=== PATIENT | male | born 1950 | race Caucasian/White ===

== ENCOUNTER → 2017-05-15 | Outpatient (CLI) | payer BC ==
--- NOTE | 2017-05-15 16:54 | RADIOLOGY REPORT (SQ) ---
EXAM DESCRIPTION: CT CHEST WITH COMPLETED DATE/TIME: 05/15/2017 4:06 pm REASON FOR STUDY: Z12.2 ENCNTR SCREEN FOR MALIGNANT NEOPLASM OF RESPIRATORY ORGANS R05 COUGH Z12.2 ENCNTR SCREEN FOR MALIGNANT NEOPLASM OF RESPIRATORY OR COMPARISON: None. TECHNIQUE: CT scan of the chest performed using helical scanning technique with dynamic intravenous contrast injection. Images reviewed with lung, soft tissue and bone windows. Reconstructed coronal and sagittal MPR images reviewed. All images stored on PACS. All CT scanners at this facility use dose modulation, iterative reconstruction, and/or weight based d osing when appropriate to reduce radiation dose to as low as reasonably achievable (ALARA). [facility]: Dose Right [facility]: CareDose [facility]: Dose Right [facility]: Teradose 4D [facility]: [employer] CONTRAST TYPE AND DOSE: contrast/concentration: Isovue 370.00 mg/ml; Total Contrast Delivered: 80.0 ml; Total Saline Delivered: 55.0 ml RENAL FUNCTION: Creatinine 1 RADIATION DOSE: Up-to-date CT equipment and radiation dose reduction techniques were employed. CTDIv ol: 7.5 mGy. DLP: 313 mGy-cm. . LIMITATIONS: None. FINDINGS: LUNGS AND PLEURA: No opacities, nodules, masses. No pneumothorax. No effusions. HILAR AND MEDIASTINAL STRUCTURES: No identified masses or abnormal nodes. HEART AND VASCULAR STRUCTURES: No aneurysm or dissection. No central pulmonary emboli. No pericardi al effusion. HARDWARE: None in the chest. UPPER ABDOMEN: No significant findings. Limited exam. THYROID AND OTHER SOFT TISSUES: No masses. No adenopathy. BONES: No significant finding. OTHER: No other significant finding. IMPRESSION: NORMAL CT OF THE CHEST WITH IV CONTRAST. TECHNICAL DOCUMENTATION: JOB ID: [id number] Quality ID # [id number]: Final reports with documentation of one or more dose reduction techniques (e.g., Au tomated exposure control, adjustment of the mA and/or kV according to patient size, use of iterative reconstruction technique) 2010 [employer]- All Rights Reserved
== END ==
LOC: RAD 15:04
PROVIDERS: ATTEND Internal Medicine
DX: Z12.2 Encounter for screening for malignant neoplasm of respiratory organs (principal)
CPT/HCPCS: 71260; 82565

== ENCOUNTER 2018-12-19 06:33 | Day surgery (SDC) | payer BC ==
[~2018-12-19 06:33] MED LIST: KETOROLAC TROMETHAMINE 0.45% 4 DROP/0.4 ML DROPERETTE OS PRN; TETRACAINE HCL 0.5% OPH SOLN 4 ML OS PRN
[2018-12-19] MEDS ORDERED: MIDAZOLAM 2 MG/2 ML INJ ONE ×2 (06:48→07:35)
[2018-12-19] MEDS ORDERED: FENTANYL CITRATE INJ/PF 100 MCG/2 ML AMPUL ONE (06:48)
[2018-12-19] MEDS: CYCLOPENTOLATE 0.2%/PHENYLEPHRINE 1% OPH SOLN 2 ML OS PRN ×3 (07:29→07:47)
[2018-12-19] MEDS: TETRACAINE HCL 0.5% OPH SOLN 4 ML OS PRN ×2 (07:29→07:47)
[2018-12-19] MEDS: BESIFLOXACIN HCL 0.6% OPH SUSP 5 ML BOTTLE OS PRN ×4 (07:29→08:12)
[2018-12-19] MEDS: TROPICAMIDE 1% OPH SOLN 3 ML OS PRN ×3 (07:29→07:47)
[2018-12-19] MEDS: TETRACAINE HCL 0.5% OPH SOLN 4 ML ONE ×2 (07:49)
[2018-12-19] MEDS: LIDOCAINE 1%/PHENYLEPHRINE 1.5% 1 ML VIAL ONE ×2 (08:01)
[2018-12-19] MEDS: EPINEPHRINE INJ/PF 1 MG/1 ML AMPULE ONE ×2 (08:01)
[2018-12-19] MEDS: CHONDR SU A NA/HYALUR INTRAOC KIT (SURGICARE) ONE ×2 (08:01)
[2018-12-19] MEDS: DORZOLAMIDE HCL 2%/TIMOLOL MALEAT 0.5% OPH SOLN 10 ML OS PRN ×2 (08:12)
--- NOTE | 2018-12-19 17:15 | [facility] OPERATIVE REPORT E ---
[facility] Operative Report NAME: IVON VILLANUEVA AGE: 68Y DATE OF SURGERY: 12/19/2018 ROOM: PREOPERATIVE DIAGNOSIS: CATARACT, LEFT EYE. POSTOPERATIVE DIAGNOSIS: CATARACT, LEFT EYE. OPERATION: Cataract extraction with insertion of an IOL of the left eye. SURGEON: SANDHYA WILDE M.D. ANESTHESIA: Topical. PROCEDURE: After obtaining appropriate consent, the patient's left eye was prepped and draped in sterile fashion as well as the surgeon in a sterile manner and cataract surgery was started. First a paracentesis blade was used to make a side-port incision. Viscoelastic was used to inflate the anterior chamber. Next a 2.4 mm incision was made with a 2.4 mm blade, clear corneal temporally. A continuous capsulorrhexis was made using a cystotome and Utrata forceps. Following this hydrodissection was carried out to make the lens fully loose and mobile and it was rotated 90 degrees. Following this, a bcsemx-qnl-spunpnv technique was used to phacoemulsify the lens with a CDE of 11.07. The remaining cortex was removed with irrigation/aspiration. Provisc was instilled into the capsular bag to inflate the bag. A SN60WF, 16.0 diopter lens was placed. The remaining viscoelastic material was removed with irrigation/aspiration. Following this, the incision was found to be watertight. Besivance was instilled into the eye and a protective shield was placed over the eye. The patient returned to the postoperative recovery in stable condition. DICTATING PHYSICIAN: SANDHYA WILDE M.D. [id number] PHY#: [id number] ID: [id number] JOB#: [id number] ACCT: [id number] cc:SANDHYA WILDE M.D. >
--- NOTE | 2018-12-19 17:15 | [facility] DISCHARGE SUMMARY E ---
[facility] Discharge Summary NAME: IVON VILLANUEVA AGE: 68Y ADMITTED: 12/19/2018 DISCHARGED: The patient is a 68-year-old male who underwent cataract extraction of the left eye. DIAGNOSIS: Cataract left eye. He underwent surgery because he was having difficulty seeing the lines on the road when driving. He should be on a regular diet. No bending at the waist and no heavy lifting. He should use his Besivance, Ilevro, and Durezol at 3:00 p.m. and 8:00 p.m. and sleep with a rigid shield. I will see him for his 1-day postop tomorrow. DICTATING PHYSICIAN: SANDHYA WILDE M.D. [id number] PHY#: [id number] ID: [id number] JOB#: [id number] ACCT: [id number] cc:SANDHYA WILDE M.D. >
[2018-12-20] MEDS ORDERED: DORZOLAMIDE HCL 2%/TIMOLOL MALEAT 0.5% OPH SOLN 10 ML OS PRN (05:00)
[2018-12-20] MEDS ORDERED: BESIFLOXACIN HCL 0.6% OPH SUSP 5 ML BOTTLE OS PRN (05:00)
[2018-12-20] MEDS ORDERED: CYCLOPENTOLATE 0.2%/PHENYLEPHRINE 1% OPH SOLN 2 ML OS PRN (05:00)
[2018-12-20] MEDS ORDERED: TETRACAINE HCL 0.5% OPH SOLN 0.6 ML DROPERETTE OS PRN (05:00)
[2018-12-20] MEDS ORDERED: KETOROLAC TROMETHAMINE 0.45% 4 DROP/0.4 ML DROPERETTE OS PRN (05:00)
[2018-12-20] MEDS ORDERED: TROPICAMIDE 1% OPH SOLN 3 ML OS PRN (05:00)
== END 2018-12-19 09:05 | disposition home or self-care (01) ==
LOC: SC 06:33
PROVIDERS: ATTEND Internal Medicine
PROC: 08RK3JZ Replacement of Left Lens with Synthetic Substitute, Percutaneous Approach (ICD-10-PCS; principal; 2018-12-19 07:30)
DX: H25.12 Age-related nuclear cataract, left eye (principal); H52.4 Presbyopia; E11.9 Type 2 diabetes mellitus without complications; I10 Essential (primary) hypertension; E78.00 Pure hypercholesterolemia, unspecified; F17.210 Nicotine dependence, cigarettes, uncomplicated; I69.354 Hemiplegia and hemiparesis following cerebral infarction affecting left non-dominant side; Z79.84 Long term (current) use of oral hypoglycemic drugs; Z79.899 Other long term (current) drug therapy
CPT/HCPCS: 82962; 00142; 66984; V2632; J2250; J3490 ×2; J0171; J2370; 142; J3010

== ENCOUNTER 2019-01-16 10:07 | Day surgery (SDC) | payer BC ==
[~2019-01-16 10:07] MED LIST changes: +CHONDR SU A NA/HYALUR INTRAOC KIT (SURGICARE) ONE; +EPINEPHRINE INJ/PF 1 MG/1 ML AMPULE ONE; +KETOROLAC TROMETHAMINE 0.45% 4 DROP/0.4 ML DROPERETTE OD PRN; -KETOROLAC TROMETHAMINE 0.45% 4 DROP/0.4 ML DROPERETTE OS PRN; +LIDOCAINE 1%/PHENYLEPHRINE 1.5% 1 ML VIAL ONE; +MIDAZOLAM 2 MG/2 ML INJ ONE; -TETRACAINE HCL 0.5% OPH SOLN 4 ML OS PRN
[2019-01-16] MEDS: TROPICAMIDE 1% OPH SOLN 3 ML OD PRN ×3 (11:10→11:33)
[2019-01-16] MEDS: CYCLOPENTOLATE 0.2%/PHENYLEPHRINE 1% OPH SOLN 2 ML OD PRN ×3 (11:10→11:33)
[2019-01-16] MEDS: TETRACAINE HCL 0.5% OPH SOLN 4 ML OD PRN ×3 (11:10→11:39)
[2019-01-16] MEDS: BESIFLOXACIN HCL 0.6% OPH SUSP 5 ML BOTTLE OD PRN ×4 (11:10→12:00)
[2019-01-16] MEDS: DORZOLAMIDE HCL 2%/TIMOLOL MALEAT 0.5% OPH SOLN 10 ML OD PRN ×2 (12:00)
--- NOTE | 2019-01-16 19:26 | [facility] OPERATIVE REPORT E ---
[facility] Operative Report NAME: IVON VILLANUEVA AGE: 68Y DATE OF SURGERY: 01/16/2019 ROOM: PREOPERATIVE DIAGNOSIS: CATARACT, RIGHT EYE. POSTOPERATIVE DIAGNOSIS: CATARACT, RIGHT EYE. OPERATION: Cataract extraction with insertion of an IOL of the right eye. SURGEON: SANDHYA WILDE M.D. ANESTHESIA: Topical. PROCEDURE: After obtaining appropriate consent, the patient's right eye was prepped and draped in sterile fashion as well as the surgeon in a sterile manner and cataract surgery was started. First a paracentesis blade was used to make a side-port incision. Viscoelastic was used to inflate the anterior chamber. Next a 2.4 mm incision was made with a 2.4 mm blade, clear corneal temporally. A continuous capsulorrhexis was made using a cystotome and Utrata forceps. Following this hydrodissection was carried out to make the lens fully loose and mobile and it was rotated 90 degrees. Following this, a swuhae-kxi-qocplfj technique was used to phacoemulsify the lens with a CDE of 2.95. The remaining cortex was removed with irrigation/aspiration. Provisc was instilled into the capsular bag to inflate the bag. A SN60WF, 16.5 diopter lens was placed. The remaining viscoelastic material was removed with irrigation/aspiration. Following this, the incision was found to be watertight. Besivance was instilled into the eye and a protective shield was placed over the eye. The patient returned to the postoperative recovery in stable condition. DICTATING PHYSICIAN: SANDHYA WILDE M.D. [id number] PHY#: [id number] ID: [id number] JOB#: [id number] ACCT: [id number] cc:SANDHYA WILDE M.D. >
--- NOTE | 2019-01-16 19:26 | [facility] DISCHARGE SUMMARY E ---
[facility] Discharge Summary NAME: IVON VILLANUEVA AGE: 68Y ADMITTED: 01/16/2019 DISCHARGED: 01/16/2019 HOSPITAL COURSE: This is a 68-year-old patient who underwent cataract extraction of the right eye. DIAGNOSIS: CATARACT, RIGHT EYE. He underwent surgery because he was having an imbalance between both eyes and has trouble going up and down stairs. DISCHARGE INSTRUCTIONS: He should be on a regular diet. No bending at his waist, no heavy lifting. He should use his Besivance, Prolensa, and Durezol at 3 p.m. and 8 p.m. and sleep with a rigid shield. I will see him for his 1 day postoperative tomorrow. DICTATING PHYSICIAN: SANDHYA WILDE M.D. [id number] PHY#: [id number] ID: [id number] JOB#: [id number] ACCT: [id number] cc:SANDHYA WILDE M.D. >
== END 2019-01-16 12:55 | disposition home or self-care (01) ==
LOC: SC 10:07
PROVIDERS: ATTEND Internal Medicine
DX: H25.11 Age-related nuclear cataract, right eye (principal); Z96.1 Presence of intraocular lens; J44.9 Chronic obstructive pulmonary disease, unspecified; F17.210 Nicotine dependence, cigarettes, uncomplicated; I25.10 Atherosclerotic heart disease of native coronary artery without angina pectoris; Z86.73 Personal history of transient ischemic attack (TIA), and cerebral infarction without residual deficits
CPT/HCPCS: 66984; 82962; 00142; V2632; J2250; J3490 ×2; J0171; J2370; 142

== ENCOUNTER 2019-03-17 23:53 | Inpatient (IN) | payer BC ==
[2019-03-18] MEDS ORDERED: ASPIRIN 81 MG TABLET, CHEWABLE PO ONE (00:05)
[2019-03-18 00:31] LABS: ABSOLUTE BASOPHILS # (AUTO) 0.1 10^3/uL (0.0-0.2); ABSOLUTE EOSINOPHILS # (AUTO) 0.3 10^3/uL (0.0-0.6); ABSOLUTE LYMPHOCYTES (AUTO) 3.2 10^3/uL (0.5-4.7); ABSOLUTE NEUT (AUTO) 5.9 10^3/uL (1.7-8.2); BASOPHILS % (AUTO) 1.4 % (0-2); EOSINOPHILS % (AUTO) 2.7 % (0-6); HEMATOCRIT 47.4 % (37.9-51.0); HEMOGLOBIN 15.9 g/dL (13.5-17.0); LYMPHOCYTES % (AUTO) 30.3 % (13-45); MEAN CORPUSCULAR HEMOGLOBIN 32.5 pg (27.0-33.4); MEAN CORPUSCULAR HGB CONC 33.5 g/dL (32.0-36.0); MEAN CORPUSCULAR VOLUME 97 fl (80-97); MONOCYTES % (AUTO) 9.7 % (3-13); PLATELET COUNT 243 10^3/uL (150-450); RED CELL DISTRIBUTION WIDTH 13.2 % (11.5-14.0); SEGMENTED NEUTROPHILS % (AUTO) 55.9 % (42-78); TOTAL CELLS COUNTED % (AUTO) 100 %; WHITE BLOOD COUNT 10.6 10^3/uL (4.0-10.5)
--- NOTE | 2019-03-18 00:34 | ER Document Report ---
ED Cardiac - General Chief Complaint: Chest Pain Stated Complaint: CHEST PAIN Time Seen by Provider: 03/18/19 00:34 Mode of Arrival: Ambulatory Information source: Patient, Relative Notes: HISTORY OF PRESENT ILLNESS: Patient is a 68-year-old male with a past medical history of coronary artery disease status post stent x1 who presents with chest pain that awoke him from sleep at approximately 9 PM prior to arrival. Pain is described as a heaviness and burning, nearly identical to his symptoms preceding his stent. Location: Left chest Onset: Prior to arrival Alleviation: None Provocation: None Quality: Heaviness, burning Radiation: Left shoulder and arm Severity: Moderate Timing: Intermittent, persistent History of CAD: Yes Associated symptoms: Denies nausea vomiting, no shortness of breath, no cough or congestion REVIEW OF SYSTEMS: CONSTITUTIONAL : Denies fever or chills, no sweats. Denies recent illness. EENT: Denies eye, ear, throat, or mouth pain or symptoms. Denies nasal or sinus congestion. CARDIOVASCULAR: Positive for chest pain. Denies swelling of the legs. RESPIRATORY: Denies cough, cold, or chest congestion. Denies shortness of breath or difficulty breathing. Denies wheezing. GASTROINTESTINAL: Denies abdominal pain. Denies nausea, vomiting, or diarrhea. Denies constipation. GENITOURINARY: Denies difficulty urinating, painful urination, burning, f requency, or blood in urine. MUSCULOSKELETAL: Denies neck or back pain or joint pain or swelling. SKIN: Denies rash or skin lesions. HEMATOLOGIC : Denies easy bruising or bleeding. LYMPHATIC: Denies swollen, enlarged glands. NEUROLOGICAL: Denies altered mental status or loss of consciousness. Denies headache. Denies weakness or paralysis or loss of use of either side. Denies problems with gait or speech. Denies sensory or motor loss. PSYCHIATRIC: Denies anxiety or stress or depression. All other systems reviewed and negative. PHYSICAL EXAMINATION: GENERAL: Well-appearing, well-nourished and in no acute distress. HEAD: Atraumatic, normocephalic. No scalp deformity, depression, or crepitance. EYES: Pupils are 3 mm and equal/round/reactive to light, extraocular movements intact, sclera anicteric, conjunctiva are normal. ENT: Nares patent bilaterally, oropharynx. Moist mucous membranes. No tonsil hypertrophy. NECK: Normal range of motion, supple without lymphadenopathy. LUNGS: Breath sounds present, equal, and clear to auscultation bilaterally. No wheezes, rales, or rhonchi. HEART: Regular rate and rhythm without murmurs, rubs, or gallops. 2+ peripheral pulses. Normal capillary refill. ABDOMEN: Soft, nontender, nondistended. Normoactive bowel sounds. No guarding, no rebound. No masses appreciated. BACK: Normal contour, no midline tenderness. Rectal exam deferred. GENITAL/PELVIC: Deferred. EXTREMITIES: Normal range of motion, no pitting or edema. No cyanosis. NEUROLOGICAL: No focal neurological deficits. Moves all extremities spontaneously and on command. PSYCH: Normal mood, normal affect. No suicidal thoughts/ideations. No homicidal thoughts/ideations. No hallucinations. SKIN: Warm, dry, normal turgor, no rashes or lesions noted. ASSESSMENT AND PLAN: This patient is a 68-year-old male who presents with chest pain that likely represents unstable angina. 1. Will obtain labs, urine, cardiac enzymes, chest x-ray, EKG, and admit to the hospital. 2. Will give oral aspirin as well as IV morphine as needed for pain control. TRAVEL OUTSIDE OF THE [place] IN LAST 30 DAYS: No - HPI Patient complains to provider of: Chest pain, Chest tightness Was the onset of pain: Sudden Is the pain a: New problem Chest pain location: Substernal Quality of pain: Burning, Heaviness Chest pain radiation location: Left arm, Left shoulder Severity now: Mild Severity at worst: Moderate Pain level currently: 1 Chest pain precipitating factors: At Rest Cardiac risk factors: Diabetes, Hypertension, Dyslipidemia Positive cardiac history: Yes Associated symptoms: None Exacerbated by: Denies Relieved by: Nothing Similar symptoms previously: Yes Recently seen / treated by doctor: No - Related Data Allergies/Adverse Reactions: No Known Allergies Allergy (Verified 12/12/18 15:04) Past Medical History - General Information source: Patient, Relative - Social History Smoking Status: Current Every Day Smoker Chew tobacco use (# tins/day): No Frequency of alcohol use: None Drug Abuse: None Lives with: Family Family History: None Patient has suicidal ideation: No Patient has homicidal ideation: No - Past Medical History Cardiac Medical History: Reports: Hx Heart Attack - 2012, Hx Hypercholesterolemia, Hx Hypertension Pulmonary Medical History: Reports: None Denies: Hx Asthma EENT Medical History: Reports: None Neurological Medical History: Reports: Hx Cerebrovascular Accident - SPEECH WEAKNESS RIGHT. Denies: Hx Seizures Endocrine Medical History: Reports: Hx Diabetes Mellitus Type 2 Renal/ Medical History: Reports: None Malignancy Medical History: Reports None GI Medical History: Reports: None. Denies: Hx Hepatitis, Hx Hiatal Hernia, Hx Ulcer Musculoskeletal Medical History: Reports None Skin Medical History: Reports None Psychiatric Medical History: Reports: None Traumatic Medical History: Reports: None Infectious Medical History: Reports: None. Denies: Hx Hepatitis Past Surgical History: Reports: Hx Cardiac Catheterization - stents 5 years ago. Denies: Hx Open Heart Surgery, Hx Pacemaker - Immunizations Immunizations up to date: Yes Hx Diphtheria, Pertussis, Tetanus Vaccination: Yes Review of Systems - Review of Systems Constitutional: No symptoms reported EENT: No symptoms reported Cardiovascular: See HPI, Chest pain Respiratory: No symptoms reported Gastrointestinal: No symptoms reported Genitourinary: No symptoms reported Male Genitourinary: No symptoms reported Musculoskeletal: No symptoms reported Skin: No symptoms reported Hematologic/Lymphatic: No symptoms reported Neurological/Psychological: No symptoms reported -: Yes All other systems reviewed and negative Physical Exam - Vital signs Vitals: Temp Pulse Resp BP Pulse Ox 97.7 F 72 20 167/76 H 96 03/18/19 00:07 03/18/19 00:07 03/18/19 00:07 03/18/19 00:07 03/18/19 00:07 Interpretation: Normal Course - Re-evaluation Re-evalutation: 03/18/19 03:45 Labs, including cardiac enzymes, are negative. Chest x-ray is negative. Patient has developed a right bundle branch block on his EKG as compared to his previous from 2013, there are no acute ischemic changes. Patient is admitted to the hospital. - Vital Signs Vital signs: Temp Pulse Resp BP Pulse Ox 97.7 F 55 L 13 140/81 H 99 03/18/19 00:07 03/18/19 02:08 03/18/19 03:01 03/18/19 03:01 03/18/19 03:01 - Laboratory Result Diagrams: 03/18/19 00:20 03/18/19 00:20 Laboratory results interpreted by me: 03/18/19 03/18/19 00:20 00:20 WBC 10.6 H Carbon Dioxide 32 H - Diagnostic Test Radiology reviewed: Image reviewed, Reports reviewed - EKG Interpretation by Me EKG shows normal: Sinus rhythm Rate: Normal Rhythm: NSR [place]/QRS: RBBB, LAHB/LAFB, Bifasicular block Voltage: No: Increased voltage, Consistant with LVH, Decreased voltage, Thro ughout, Limb leads P Waves: No: KINA, LAE, Absent, AV Dissociation, Other Heart block present: No: 1st Degree, Mobitz 1, Mobitz 2, CHB (3rd degree block) When compared to previous EKG there are: Changes noted - Left anterior f ascicular block from 2013 is still present, however patient now has a right bundle branch block on top of it - Consults Dr. Ram Time consulted: 03:45 - will admit Consulted provider: will come to ER Discharge - Discharge Clinical Impression: Unstable angina Condition: Good Disposition: ADMITTED INPATIENT Admitting Provider: Denisha Unit Admitted: Telemetry
[2019-03-18 00:52] LABS: ALBUMIN 4.5 g/dL (3.5-5.0); ALKALINE PHOSPHATASE 70 U/L (38-126); ANION GAP 9 (5-19); ASPARTATE AMINO TRANSFERASE 23 U/L (17-59); BILIRUBIN,DIRECT 0.2 mg/dL (0.0-0.4); BILIRUBIN,TOTAL 0.7 mg/dL (0.2-1.3); BLOOD UREA NITROGEN 16 mg/dL (7-20); CALCIUM 10.1 mg/dL (8.4-10.2); CARBON DIOXIDE 32 mmol/L (22-30); CHLORIDE 99 mmol/L (98-107); CREATINE KINASE 66 U/L (55-170); GLUCOSE 89 mg/dL (75-110); POTASSIUM 4.6 mmol/L (3.6-5.0)
[2019-03-18 01:06] LABS: CREATINE KINASE MB 1.56 ng/mL (<4.55)
[2019-03-18 01:07] LABS: TROPONIN I < 0.012 ng/mL
--- NOTE | 2019-03-18 01:43 | RADIOLOGY REPORT (SQ) ---
EXAM DESCRIPTION: XR CHEST 1 VIEW COMPLETED DATE/TME: 03/18/2019 01:03 CLINICAL HISTORY: 68 years, Male, Chest pain COMPARISON: None. NUMBER OF VIEWS: 1 TECHNIQUE: Portable chest LIMITATIONS: None. FINDINGS: Heart size is normal. Osteopenia. Lungs are hyperinflated but clear. No pneumothorax IMPRESSION: Underlying hyperinflation. Lungs are clear copyright 2011 [employer] All Rights Reserved
[2019-03-18] MEDS ORDERED: MORPHINE SULFATE 10 MG/ML INJ IV PRN (03:50)
[2019-03-18] MEDS ORDERED: ONDANSETRON HCL INJ/PF 4 MG/2 ML SDV IV PRN (03:50)
[2019-03-18] MEDS ORDERED: ONDANSETRON 4 MG TAB.RAPDIS PO PRN (04:19)
[2019-03-18] MEDS ORDERED: CLOPIDOGREL BISULFATE 300 MG TABLET PO ONE (04:19)
[2019-03-18] MEDS ORDERED: NITROGLYCERIN/D5W 50 MG/250 ML RTUINJ IV PRN (04:19)
[2019-03-18] MEDS ORDERED: ATORVASTATIN CALCIUM 80 MG TABLET PO ONE (04:45)
[2019-03-18] MEDS ORDERED: ENOXAPARIN SODIUM INJ 80 MG/0.8 ML DISP.SYRIN SUBCUT ONE (04:45)
[2019-03-18] MEDS ORDERED: ASPIRIN 81 MG TABLET, ENT COATED PO ONE (05:00)
[2019-03-18 06:23] LABS: ABSOLUTE BASOPHILS # (AUTO) 0.1 10^3/uL (0.0-0.2); ABSOLUTE EOSINOPHILS # (AUTO) 0.2 10^3/uL (0.0-0.6); ABSOLUTE LYMPHOCYTES (AUTO) 2.6 10^3/uL (0.5-4.7); ABSOLUTE MONOCYTES (AUTO) 0.8 10^3/uL (0.1-1.4); ABSOLUTE NEUT (AUTO) 5.4 10^3/uL (1.7-8.2); BASOPHILS % (AUTO) 0.9 % (0-2); EOSINOPHILS % (AUTO) 2.5 % (0-6); HEMATOCRIT 45.5 % (37.9-51.0); HEMOGLOBIN 15.4 g/dL (13.5-17.0); LYMPHOCYTES % (AUTO) 28.2 % (13-45); MEAN CORPUSCULAR HEMOGLOBIN 32.5 pg (27.0-33.4); MEAN CORPUSCULAR HGB CONC 33.9 g/dL (32.0-36.0); MEAN CORPUSCULAR VOLUME 96 fl (80-97); PLATELET COUNT 219 10^3/uL (150-450); RED BLOOD COUNT 4.74 10^6/uL (4.35-5.55); RED CELL DISTRIBUTION WIDTH 13.5 % (11.5-14.0); SEGMENTED NEUTROPHILS % (AUTO) 59.4 % (42-78); TOTAL CELLS COUNTED % (AUTO) 100 %; WHITE BLOOD COUNT 9.1 10^3/uL (4.0-10.5)
[2019-03-18 06:36] LABS: INTERNATIONAL RATION (INR) 1.01; PROTHROMBIN TIME 13.3 SEC (11.4-15.4)
[2019-03-18 06:37] LABS: PARTIAL THROMBOPLASTIN TIME 34.1 SEC (23.5-35.8)
[2019-03-18 06:39] LABS: ANION GAP 8 (5-19); BLOOD UREA NITROGEN 13 mg/dL (7-20); CALCIUM 9.8 mg/dL (8.4-10.2); CARBON DIOXIDE 25 mmol/L (22-30); CHLORIDE 105 mmol/L (98-107); GLUCOSE 116 mg/dL (75-110); PHOSPHORUS 3.5 mg/dL (2.5-4.5); POTASSIUM 4.4 mmol/L (3.6-5.0)
--- NOTE | 2019-03-18 07:43 | EKG REPORT ---
SEVERITY:- ABNORMAL ECG - SINUS BRADYCARDIA WITH FIRST DEGREE AVB. LEFT ANTERIOR FASCICULAR BLOCK CONSIDER OLD ANTEROSEPTAL KS : Confirmed by: Charly Alvarenga MD 18-Mar-2019 07:42:44
--- NOTE | 2019-03-18 07:45 | EKG REPORT ---
SEVERITY:- ABNORMAL ECG - SINUS RHYTHM RBBB AND LAFB : Confirmed by: Charly Alvarenga MD 18-Mar-2019 07:45:24
[2019-03-18] MEDS: METOPROLOL TARTRATE PF/INJ 5 MG/5 ML SDV IV SCH ×2 (09:21→21:24)
[2019-03-18] MEDS: NITROGLYCERIN 10 MG (0.4 MG/HR) PATCH.TD24 TD SCH (11:42)
--- NOTE | 2019-03-18 14:23 | EKG REPORT ---
SEVERITY:- ABNORMAL ECG - sinus bradycardia. RHYTHM RBBB AND LAFB : Confirmed by: Charly Alvarenga MD 18-Mar-2019 14:22:27
--- NOTE | 2019-03-18 16:47 | PDOC CONSULTATION ---
Consultation-Blank Consultation: CARDIOLOGY CONSULTATION by Dr. Svitlana Cowan on 03/18/2018. Patient seen at 8 AM. 60 minutes spent on this patient with more than 50% of time spent in direct patient care. REASON FOR CONSULTATION: Patient with known history of coronary artery disease, history of coronary artery stent and old PR admitted with chest pain consistent with acute coronary syndrome and with evidence of non-ST elevation PR. For management. CONSULT REQUESTING PHYSICIAN: Dr. Denny. History PRESENT ILLNESS: Patient is a 68-year-old male with known history of coronary artery disease, prior history of PR 7 years ago and history of coronary artery stent most likely in the left circumflex artery, hypertension diabetes mellitus, COPD who continues to smoke admitted with the severe substernal and left front of chest heaviness and burning. It lasted for more than half an hour and he came to the emergency room and at present is pain-free. Although his EKG does not show any major acute changes the patient has evidence of non-ST elevation PR by elevation of troponin I. At present the patient is pain-free. The patient states prior to this for about 2 to 3 days he had had short episodes of chest pressure/burning as mentioned in earlier, but lasting only a few minutes. Since it subsided on its own he did not seek any medical attention. He does state that he had some shortness of breath with the chest. The symptoms symptoms. There is no palpitations. There was some degree of diaphoresis. There is no dizziness palpitations near syncope or syncope. The patient has no TIA CVA symptoms. He has no cough or sputum production. There is no PND orthopnea or leg edema. PAST MEDICAL HISTORY: History of diabetes mellitus present. History of hypertension, patient states is well controlled. He has a history of COPD and history of tobacco abuse. There is no history of thyroid disease. He has a h istory of myocardial infarction about 7 years ago at which time he had a stent placed. Judging from the chest x-ray and from the patient's description patient stent is most likely in the circumflex artery. He has not had a stress test since after that. He is very active, with only recent symptoms. The symptoms are compatible with acute coronary syndrome/unstable angina. The patient did rule in for non-ST elevation PR. He has history of hyperlipidemia. He has no history of asthma. There is no history of cough or wheezing or sputum production. There is no history of congestive heart failure. There is no history of palpitations or cardiac arrhythmia. There is no history of congestive heart failure. He has a history of diabetes mellitus. There is no history of thyroid disease. There is no history of chronic kidney disease. There is no history of TIA or CVA. PAST SURGICAL HISTORY: Cardiac catheterization stent placement. He has had shrapnel removed from his body. He has had a tonsillectomy and neck surgery. FAMILY HISTORY: Is positive for coronary artery disease and hypertension. ALLERGIES: The patient has no known allergies. SOCIAL HISTORY: The patient is a smoker. There is no severe EtOH abuse. There is no history of street drug abuse. RESUSCITATION STATUS: The patient is a full code. His fiance is a surrogate healthcare decision maker. REVIEW OF SYSTEMS: CONSTITUTIONAL : Denies fever or chills, no sweats. Denies recent illness. EENT: Denies eye, ear, throat, or mouth pain or symptoms. Denies nasal or sinus congestion. CARDIOVASCULAR: Positive for chest pain. Denies swelling of the legs. RESPIRATORY: Denies cough, cold, or chest congestion. Denies shortness of breath or difficulty breathing. Denies wheezing. GASTROINTESTINAL: Denies abdominal pain. Denies nausea, vomiting, or diarrhea. Denies constipation. GENITOURINARY: Denies difficulty urinating, painful urination, burning, frequency, or blood in urine. MUSCULOSKELETAL: Denies neck or back pain or joint pain or swelling. SKIN: Denies rash or skin lesions. HEMATOLOGIC : Denies easy bruising or bleeding. LYMPHATIC: Denies swollen, enlarged glands. NEUROLOGICAL: Denies altered mental status or loss of consciousness. Denies headache. Denies weakness or paralysis or loss of use of either side. Denies problems with gait or speech. Denies sensory or motor loss. PSYCHIATRIC: Denies anxiety or stress or depression. Current Medications Generic Name Dose Route Start Last Admin Trade Name Freq PRN Reason Stop Dose Admin Aspirin 81 mg 03/19/19 10:00 Ecotrin 81 Mg Ec Tablet PO 04/18/19 09:59 DAILY [facility] Atorvastatin Calcium 80 mg 03/18/19 22:00 Lipitor 80 Mg Tablet PO 04/17/19 21:59 QHS [facility] Clopidogrel Bisulfate 75 mg 03/19/19 10:00 Plavix 75 Mg Tablet PO 04/18/19 09:59 DAILY [facility] Enoxaparin Sodium 70 mg 03/18/19 18:00 Lovenox Inj 80 Mg/0.8 Ml Disp.Syrin SUBCUT 04/17/19 17:59 Q12A [facility] Metoprolol Tartrate 2.5 mg 03/18/19 10:00 03/18/19 09:21 Lopressor Inj/Pf 5 Mg/5 Ml Sdv IV 04/17/19 09:59 Not Given Q12 [facility] Morphine Sulfate 4 mg 03/18/19 03:50 Morphine 10 Mg/Ml Inj IV 03/25/19 03:49 Q8HP PRN FOR PAIN Nitroglycerin 1 each 03/18/19 12:00 03/18/19 11:42 Nitro-Dur 10 Mg (0.4mg/Hr) Transdermal Patch TD 04/17/19 11:59 1 each DAILY [facility] Administration Ondansetron HCl 4 mg 03/18/19 03:50 Zofran Inj/Pf 4 Mg/2 Ml Sdv IV 04/17/19 03:49 Q6HP PRN FOR NAUSEA/VOMITING Ondansetron HCl 4 mg 03/18/19 04:19 Zofran Odt 4 Mg Tablet PO 04/17/19 04:18 Q6HP PRN FOR NAUSEA/VOMITING Sodium Chloride 2.5 ml 03/18/19 06:00 03/18/19 13:04 Saline Flush 2.5 Ml Monoject Prefil Syrin IV 04/17/19 05:59 Not Given Q8 ADEN Discontinued Medications Generic Name Dose Route Start Last Admin Trade Name Freq PRN Reason Stop Dose Admin Aspirin 324 mg 03/18/19 00:05 03/18/19 00:37 Aspirin 81 Mg Chewable Tablet PO 03/18/19 00:06 324 mg NOW ONE Administration Aspirin 81 mg 03/18/19 05:00 03/18/19 05:33 Ecotrin 81 Mg Ec Tablet PO 03/18/19 05:01 81 mg NOW ONE Administration Atorvastatin Calcium 80 mg 03/18/19 04:45 03/18/19 05:33 Lipitor 80 Mg Tablet PO 03/18/19 04:46 80 mg NOW ONE Administration Clopidogrel Bisulfate 300 mg 03/18/19 04:19 03/18/19 05:33 Plavix 300 Mg Tablet PO 03/18/19 04:20 300 mg NOW ONE Administration Enoxaparin Sodium 70 mg 03/18/19 04:45 03/18/19 05:34 Lovenox Inj 80 Mg/0.8 Ml Disp.Syrin SUBCUT 03/18/19 04:46 70 mg NOW ONE Administration Nitroglycerin/Dextrose 50 mg in 250 mls @ 0 mls/hr 03/18/19 04:19 03/18/19 06:17 Ntg Rtu 50 Mg/D5w 250 Ml Iv Premix Bottle IV 04/17/19 04:18 5 mcg/min CONTINUOUS PRN 1.5 mls/hr This was discontinued and the patient placed on topical nitrates. THIS MED IS NOT "PRN" Administration Protocol Titrate PHYSICAL EXAMINATION: The patient is well-built and well-nourished. At present in no acute distress. He is well-groomed. Selected Entries 03/18/19 03/18/19 08:00 08:26 Temperature 98.8 F Pulse Rate 53 L Respiratory 18 Rate Blood Pressure 154/73 H [Left Upper Arm ] Blood Pressure 100 Mean [Left Upper Arm] Blood Pressure Supine Position [Left Upper Arm] O2 Sat by Pulse 100 Oximetry Oxygen Delivery Nasal Cannula Room Air Method ( includes room air) HEAD: Is atraumatic normocephalic. EYES: Pupils equal round regular reactive light accommodation. Extraocular movements are normal. There is no conjunctival pallor. There is no scleral icterus. EARS: Tympanic membranes are intact. External auditory canals are clear. NOSE: There is no deviated nasal septum. There is no inflammation of the nasal mucous membrane. MOUTH: Mucous membranes of mouth are moist tongue is moist. There is no ulcers. There is no bleeding from the gums. THROAT: There is no redness of the oropharynx. There is no exudates. SKIN: There is no skin rashes. There is no particular ecchymosis. There is no skin lesions. NECK: Supple. There is no JVD. Carotids are equal there is no bruit. There is no lymphadenopathy. There is no goiter. There is no accessory muscle respiration use. Trachea central LUNGS: There is diminished air entry and prolonged expiration. On percussion there is hyperresonance. There is no chest wall tenderness on palpation. On auscultation the lungs are without any rhonchi rales or wheezing. HEART: S1-S2 is heard. S1 is of normal intensity. There is no S3 gallop. There is no S4 gallop. There is systolic murmur left sternal border and the apex there is no rub. ABDOMEN: Soft. There is no hepatosplenomegaly. Bowel sounds are well heard. There is no tender areas masses. EXTREMITIES: Femorals well felt. There is no femoral bruits. Leg pulses are well felt. There is no DVT or cellulitis. There is no calf tenderness. There is no pedal edema. There is no cyanosis or clubbing. BENZENE WORKER: The patient is conscious awake alert oriented times with no focal deficits. PSYCHIATRIC: The patient judgment insight are intact his affect is normal. The patient's initial EKG shows sinus bradycardia. Right bundle branch block pattern and left intravascular block. The EKG: Patient's second EKG EKG also shows sinus bradycardia. Right bundle-branch block pattern left anterior fascicular block. Labs- Entire Visit 03/18/19 03/18/19 03/18/19 00:20 00:20 00:20 WBC 10.6 H RBC 4.90 Hgb 15.9 Hct 47.4 MCV 97 MCH 32.5 MCHC 33.5 RDW 13.2 Plt Count 243 Lymph % (Auto) 30.3 [place] % (Auto) 9.7 Eos % (Auto) 2.7 Baso % (Auto) 1.4 Absolute Neuts (auto) 5.9 Absolute Lymphs (auto) 3.2 Absolute Monos (auto) 1.0 Absolute Eos (auto) 0.3 Absolute Basos (auto) 0.1 Seg Neutrophils % 55.9 PT INR APTT Sodium 139.9 Potassium 4.6 Chloride 99 Carbon Dioxide 32 H Anion Gap 9 BUN 16 Creatinine 0.89 Est GFR ( Amer) > 60 Est GFR (MDRD) Non-Af > 60 Glucose 89 Hemoglobin A1c % Calcium 10.1 Phosphorus Total Bilirubin 0.7 Direct Bilirubin 0.2 Neonat Total Bilirubin Not Reportable Neonat Direct Bilirubin Not Reportable Neonat Indirect Bili Not Reportable AST 23 ALT 17 Alkaline Phosphatase 70 Creatine Kinase 66 CK-MB (CK-2) 1.56 Troponin I < 0.012 Total Protein 7.0 Albumin 4.5 03/18/19 03/18/19 03/18/19 04:07 06:04 06:04 WBC 9.1 RBC 4.74 Hgb 15.4 Hct 45.5 MCV 96 MCH 32.5 MCHC 33.9 RDW 13.5 Plt Count 219 Lymph % (Auto) 28.2 [place] % (Auto) 9.0 Eos % (Auto) 2.5 Baso % (Auto) 0.9 Absolute Neuts (auto) 5.4 Absolute Lymphs (auto) 2.6 Absolute Monos (auto) 0.8 Absolute Eos (auto) 0.2 Absolute Basos (auto) 0.1 Seg Neutrophils % 59.4 PT 13.3 INR 1.01 APTT 34.1 Sodium Potassium Chloride Carbon Dioxide Anion Gap BUN Creatinine Est GFR ( Amer) Est GFR (MDRD) Non-Af Glucose Hemoglobin A1c % Calcium Phosphorus Total Bilirubin Direct Bilirubin Neonat Total Bilirubin Neonat Direct Bilirubin Neonat Indirect Bili AST ALT Alkaline Phosphatase Creatine Kinase CK-MB (CK-2) Troponin I 0.192 Total Protein Albumin 03/18/19 03/18/19 03/18/19 06:04 06:04 06:04 WBC RBC Hgb Hct MCV MCH MCHC RDW Plt Count Lymph % (Auto) [place] % (Auto) Eos % (Auto) Baso % (Auto) Absolute Neuts (auto) Absolute Lymphs (auto) Absolute Monos (auto) Absolute Eos (auto) Absolute Basos (auto) Seg Neutrophils % PT INR APTT Sodium 137.8 Potassium 4.4 Chloride 105 Carbon Dioxide 25 Anion Gap 8 BUN 13 Creatinine 0.70 Est GFR ( Amer) > 60 Est GFR (MDRD) Non-Af > 60 Glucose 116 H Hemoglobin A1c % 5.9 Calcium 9.8 Phosphorus 3.5 Total Bilirubin Direct Bilirubin Neonat Total Bilirubin Neonat Direct Bilirubin Neonat Indirect Bili AST ALT Alkaline Phosphatase Creatine Kinase CK-MB (CK-2) Troponin I 0.276 Total Protein Albumin 03/18/19 10:37 WBC RBC Hgb Hct MCV MCH MCHC RDW Plt Count Lymph % (Auto) [place] % (Auto) Eos % (Auto) Baso % (Auto) Absolute Neuts (auto) Absolute Lymphs (auto) Absolute Monos (auto) Absolute Eos (auto) Absolute Basos (auto) Seg Neutrophils % PT INR APTT Sodium Potassium Chloride Carbon Dioxide Anion Gap BUN Creatinine Est GFR ( Amer) Est GFR (MDRD) Non-Af Glucose Hemoglobin A1c % Calcium Phosphorus Total Bilirubin Direct Bilirubin Neonat Total Bilirubin Neonat Direct Bilirubin Neonat Indirect Bili AST ALT Alkaline Phosphatase Creatine Kinase CK-MB (CK-2) Troponin I 0.340 Total Protein Albumin Chest X-Ray 03/18/19 01:03 IMPRESSION: Underlying hyperinflation. Lungs are clear IMPRESSION/RECOMMENDATION: 1. Non-ST elevation PR/acute coronary syndrome. Continue Lovenox at 1 mg/kg subcutaneously every 12 hours. Continue aspirin. We will hold off on Plavix since this can be started after cardiac cardiac catheterization if PCI is done. We will stop the patient's IV nitroglycerin since the patient is pain-free and start the patient on topical nitrates. Strongly recommend early cardiac catheterization since the patient has non-ST elevation PR after prior history of myocardial infarction, and severe lungs to the high risk category group. The options of having cardiac catheterization here and being transferred to [place] if percutaneously revascularizable lesion found versus transfer to tertiary care center such as [place] or [place] where a cardiac catheterization and stent placement can be done at the same time if indicated by discussed with the patient in detail. The patient prefers to be transferred to [place] and hence Dr. Reyes cargo mate at [facility] was contacted by me and the patient's clinical status and data were discussed with him in detail. He has accepted the patient in transfer. We are awaiting a bed. In view of the patient's bradycardia will not place the patient on a beta-chirag at present. The patient will be shown the cardiac catheterization teaching video. The benefits and risks and complications of cardiac catheterization and percutaneous intervention have been discussed with patient detail. 2. Coronary artery disease. History of old myocardial infarction. History of stent most likely in the left circumflex artery. We will [facility] to get [id number]. 3. Bradycardia: Most likely secondary to the patient's most likely dominant left circumflex lesion versus dominant RCA lesion. Patient's blood pressure is stable, and hence the patient not symptomatic. Will observe. Would avoid beta- blockers especially in view of the sinus bradycardia and the bifascicular block. Note patient has no prior history of syncope or dizziness or near syncope. 4.Hypertension: Blood pressure seems to be well controlled 5. Diabetes mellitus: Continue antidiabetic regimen and Accu-Cheks periodically as being done now. 6. Hyperlipidemia: Continue statin 7. COPD by exam: No evidence of acute exacerbation of COPD. This has remained stable this admission. 8. History of tobacco abuse: Tobacco cessation counseling given 5 minutes spent on this. Medications reviewed. Medication regimen and management plan discussed with Dr. Denny. Also the case has been discussed entirely with Dr. Reyes the accepting cargo mate. Medical decision making is of high complexity. 60 minutes spent on this patient with more than 50% of time spent on direct patient care. The patient after his percutaneous intervention would like to follow-up with me. Hence contact numbers on my cell phone number given to the patient. Will sign off in anticipation of the patient being transferred to tertiary care center. :
[2019-03-18] MEDS: ENOXAPARIN SODIUM INJ 80 MG/0.8 ML DISP.SYRIN SUBCUT SCH (17:44)
--- NOTE | 2019-03-18 18:13 | PDOC H&P ---
History of Present Illness Admission Date/PCP: 03/18/19 03:59 YAZMIN DOCKERY MD History of Present Illness: IVON VILLANUEVA is a 68 year old male he came to the emergency room this morning for evaluation of chest pressure, he drove into [place] yesterday night he has been traveling to [place] all day smoking very heavily, he has a history of coronary artery disease with stent placement. He continues to smoke, in the emergency room his presentation was consistent with unstable angina, he was admitted and started on treatment for acute coronary syndrome with Lovenox, antiplatelet therapy, statin therapy, beta-chirag, IV nitroglycerin infusion on admission the cardiac troponin was negative but it has been trending up since admitted. The present peak level is 0.3, 0.1 is myocardial infarction cutoff. Because he is presenting with non-ST segment elevated NV consultation is requested from cardiology Dr. Lundberg the EKG demonstrated sinus rhythm with ST depression in lateral leads Past Medical History Cardiac Medical History: Reports: Myocardial Infarction - 2012, Hyperlipidema, Hypertension Pulmonary Medical History: Reports: None EENT Medical History: Reports: None Endocrine Medical History: Reports: Diabetes Mellitus Type 2 Renal/ Medical History: Reports: None Malignancy Medical History: Reports: None GI Medical History: Reports: None Musculoskeltal Medical History: Reports: None Skin Medical History: Reports: None Psychiatric Medical History: Reports: None Traumatic Medical History: Reports: None Infectious Medical History: Reports: None Past Surgical History Past Surgical History: Reports: Cardiac Catheterization - stents 5 years ago Social History Lives with: Family Smoking Status: Current Every Day Smoker Cigarettes Packs Per Day: 20 Frequency of Alcohol Use: Rare Hx Recreational Drug Use: No Hx Prescription Drug Abuse: No - Advance Directive Resuscitation Status: Full Code Family History Family History: None Parental Family History Reviewed: Yes Children Family History Reviewed: Yes Sibling(s) Family History Reviewed.: Yes Medication/Allergy Home Medications: Aspirin [Adult Low Dose Aspirin EC] 81 mg PO BID 03/18/19 Lisinopril/Hydrochlorothiazide [Zestoretic 20-12.5 mg Tablet] 1 tab PO DAILY 03/18/19 Allergies/Adverse Reactions: No Known Allergies Allergy (Verified 12/12/18 15:04) Review of Systems Constitutional: ABSENT: chills, fever(s), headache(s), weight gain, weight loss Eyes: ABSENT: visual disturbances Ears: ABSENT: hearing changes Cardiovascular: PRESENT: chest pain Respiratory: ABSENT: cough, hemoptysis Gastrointestinal: ABSENT: abdominal pain, constipation, diarrhea, hematemesis, hematochezia, nausea, vomiting Genitourinary: ABSENT: dysuria, hematuria Musculoskeletal: ABSENT: joint swelling Integumentary: ABSENT: rash, wounds Neurological: ABSENT: abnormal gait, abnormal speech, confusion, dizziness, focal weakness, syncope Psychiatric: ABSENT: anxiety, depression, homidical ideation, suicidal ideation Endocrine: ABSENT: cold intolerance, heat intolerance, menstrual abnormalities, polydipsia, polyuria Hematologic/Lymphatic: ABSENT: easy bleeding, easy bruising, lymphadenopathy Physical Exam Vital Signs: Temp Pulse Resp BP Pulse Ox 98.8 F 57 L 16 126/67 H 97 03/18/19 12:00 03/18/19 14:00 03/18/19 12:00 03/18/19 14:00 03/18/19 12:00 Intake & Output 03/17/19 03/18/19 03/19/19 06:59 06:59 06:59 Weight 68.4 kg General appearance: PRESENT: no acute distress, well-developed, well-nourished Head exam: PRESENT: atraumatic, normocephalic Eye exam: PRESENT: conjunctiva pink, EOMI, PERRLA Ear exam: PRESENT: normal external ear exam Mouth exam: PRESENT: moist, tongue midline Neck exam: PRESENT: full ROM Respiratory exam: PRESENT: clear to auscultation tomasz Cardiovascular exam: PRESENT: RRR, +S1, +S2 Pulses: PRESENT: normal dorsalis pedis pul, +2 pedal pulses bilateral Vascular exam: PRESENT: normal capillary refill GI/Abdominal exam: PRESENT: normal bowel sounds, soft Rectal exam: PRESENT: deferred Neurological exam: PRESENT: alert, awake, oriented to person, oriented to place, oriented to time, oriented to situation, CN II-XII grossly intact Psychiatric exam: PRESENT: appropriate affect, normal mood Skin exam: PRESENT: dry, intact, warm Results Laboratory Results: 03/18/19 06:04 03/18/19 06:04 03/18/19 03/18/19 03/18/19 00:20 00:20 06:04 WBC 10.6 H 9.1 RBC 4.90 4.74 Hgb 15.9 15.4 Hct 47.4 45.5 MCV 97 96 MCH 32.5 32.5 MCHC 33.5 33.9 RDW 13.2 13.5 Plt Count 243 219 Seg Neutrophils % 55.9 59.4 Sodium 139.9 Potassium 4.6 Chloride 99 Carbon Dioxide 32 H Anion Gap 9 BUN 16 Creatinine 0.89 Est GFR ( Amer) > 60 Glucose 89 Calcium 10.1 Phosphorus Total Bilirubin 0.7 AST 23 Alkaline Phosphatase 70 Total Protein 7.0 Albumin 4.5 03/18/19 06:04 WBC RBC Hgb Hct MCV MCH MCHC RDW Plt Count Seg Neutrophils % Sodium 137.8 Potassium 4.4 Chloride 105 Carbon Dioxide 25 Anion Gap 8 BUN 13 Creatinine 0.70 Est GFR ( Amer) > 60 Glucose 116 H Calcium 9.8 Phosphorus 3.5 Total Bilirubin AST Alkaline Phosphatase Total Protein Albumin 03/18/19 03/18/19 03/18/19 00:20 00:20 04:07 Creatine Kinase 66 CK-MB (CK-2) 1.56 Troponin I < 0.012 0.192 03/18/19 03/18/19 03/18/19 06:04 10:37 16:38 Creatine Kinase CK-MB (CK-2) Troponin I 0.276 0.340 0.359 Impressions: Chest X-Ray 03/18/19 01:03 IMPRESSION: Underlying hyperinflation. Lungs are clear copyright 2011 [email or web address]- All Rights Reserved Assessment & Plan - Diagnosis (1) Non-ST elevated myocardial infarction Is this a current diagnosis for this admission?: Yes Plan: Patient is admitted for non-ST elevated NV, started on treatment with IV nitroglycerin, Lovenox, Plavix, aspirin, beta-chirag, atorvastatin
--- NOTE | 2019-03-18 18:18 | PDOC TRANSFER SUMMARY ---
General Admission Date/PCP: 03/18/19 03:59 YAZMIN DOCKERY MD Resuscitation Status: Full Code - Transfer Diagnosis (1) Non-ST elevated myocardial infarction Is this a current diagnosis for this admission?: Yes - Transfer Medications Home Medications: Aspirin [Adult Low Dose Aspirin EC] 81 mg PO BID 03/18/19 Lisinopril/Hydrochlorothiazide [Zestoretic 20-12.5 mg Tablet] 1 tab PO DAILY 0 03/18/19 Transfer Medications: Current Medications Aspirin (Ecotrin 81 Mg Ec Tablet) 81 mg PO DAILY ADEN Stop: 04/18/19 09:59 Atorvastatin Calcium (Lipitor 80 Mg Tablet) 80 mg PO QHS ADEN Stop: 04/17/19 21:59 Enoxaparin Sodium (Lovenox Inj 80 Mg/0.8 Ml Disp.Syrin) 70 mg SUBCUT Q12A ADEN Stop: 04/17/19 17:59 Last Admin: 03/18/19 17:44 Dose: 70 mg Documented by: Metoprolol Tartrate (Lopressor Inj/Pf 5 Mg/5 Ml Sdv) 2.5 mg IV Q12 ADEN Stop: 04/17/19 09:59 Last Admin: 03/18/19 09:21 Dose: Not Given Documented by: Morphine Sulfate (Morphine 10 Mg/Ml Inj) 4 mg IV Q8HP PRN PRN Reason: FOR PAIN Stop: 03/25/19 03:49 Nitroglycerin (Nitro-Dur 10 Mg (0.4mg/Hr) Transdermal Patch) 1 each TD DAILY ADEN Stop: 04/17/19 11:59 Last Admin: 03/18/19 11:42 Dose: 1 each Documented by: Ondansetron HCl (Zofran Inj/Pf 4 Mg/2 Ml Sdv) 4 mg IV Q6HP PRN PRN Reason: FOR NAUSEA/VOMITING Stop: 04/17/19 03:49 Ondansetron HCl (Zofran Odt 4 Mg Tablet) 4 mg PO Q6HP PRN PRN Reason: FOR NAUSEA/VOMITING Stop: 04/17/19 04:18 Sodium Chloride (Saline Flush 2.5 Ml Monoject Prefil Syrin) 2.5 ml IV Q8 ADEN Stop: 04/17/19 05:59 Last Admin: 03/18/19 13:04 Dose: Not Given Documented by: - Allergies Allergies/Adverse Reactions: No Known Allergies Allergy (Verified 12/12/18 15:04) Hospital Course Hospital Course: Patient was admitted this morning when he presented with non-ST elevated [place], he was treated with anti-ischemic medication including Lovenox, beta-chirag aspirin. Consultation requested from Dr. Cowan, he advised that patient needed cardiac catheterization. Patient is been transferred to [facility] for catheterization Physical Exam Vital Signs: Temp Pulse Resp BP Pulse Ox 98.8 F 57 L 16 126/67 H 97 03/18/19 12:00 03/18/19 14:00 03/18/19 12:00 03/18/19 14:00 03/18/19 12:00 Intake & Output 03/17/19 03/18/19 03/19/19 06:59 06:59 06:59 Weight 68.4 kg General appearance: PRESENT: no acute distress, well-developed, well-nourished Head exam: PRESENT: atraumatic, normocephalic Eye exam: PRESENT: conjunctiva pink, EOMI, PERRLA Ear exam: PRESENT: normal external ear exam Mouth exam: PRESENT: moist, tongue midline Respiratory exam: PRESENT: clear to auscultation tomasz Cardiovascular exam: PRESENT: RRR Pulses: PRESENT: normal dorsalis pedis pul Vascular exam: PRESENT: normal capillary refill GI/Abdominal exam: PRESENT: normal bowel sounds, soft Rectal exam: PRESENT: deferred Extremities exam: PRESENT: full ROM Neurological exam: PRESENT: alert, awake, oriented to person, oriented to place, oriented to time, oriented to situation, CN II-XII grossly intact Psychiatric exam: PRESENT: appropriate affect, normal mood Skin exam: PRESENT: dry, intact, warm Results Laboratory Results: 03/18/19 06:04 03/18/19 06:04 03/18/19 03/18/19 03/18/19 00:20 00:20 06:04 WBC 10.6 H 9.1 RBC 4.90 4.74 Hgb 15.9 15.4 Hct 47.4 45.5 MCV 97 96 MCH 32.5 32.5 MCHC 33.5 33.9 RDW 13.2 13.5 Plt Count 243 219 Seg Neutrophils % 55.9 59.4 Sodium 139.9 Potassium 4.6 Chloride 99 Carbon Dioxide 32 H Anion Gap 9 BUN 16 Creatinine 0.89 Est GFR ( Amer) > 60 Glucose 89 Calcium 10.1 Phosphorus Total Bilirubin 0.7 AST 23 Alkaline Phosphatase 70 Total Protein 7.0 Albumin 4.5 03/18/19 06:04 WBC RBC Hgb Hct MCV MCH MCHC RDW Plt Count Seg Neutrophils % Sodium 137.8 Potassium 4.4 Chloride 105 Carbon Dioxide 25 Anion Gap 8 BUN 13 Creatinine 0.70 Est GFR ( Amer) > 60 Glucose 116 H Calcium 9.8 Phosphorus 3.5 Total Bilirubin AST Alkaline Phosphatase Total Protein Albumin 03/18/19 03/18/19 03/18/19 00:20 00:20 04:07 Creatine Kinase 66 CK-MB (CK-2) 1.56 Troponin I < 0.012 0.192 03/18/19 03/18/19 03/18/19 06:04 10:37 16:38 Creatine Kinase CK-MB (CK-2) Troponin I 0.276 0.340 0.359 Impressions: Chest X-Ray 03/18/19 01:03 IMPRESSION: Underlying hyperinflation. Lungs are clear copyright 2011 [employer]- All Rights Reserved
[2019-03-18] MEDS ORDERED: ATORVASTATIN CALCIUM 80 MG TABLET PO SCH (22:00)
[2019-03-19] MEDS: ENOXAPARIN SODIUM INJ 80 MG/0.8 ML DISP.SYRIN SUBCUT SCH (05:22)
[2019-03-19] MEDS: METOPROLOL TARTRATE PF/INJ 5 MG/5 ML SDV IV SCH (09:18)
[2019-03-19] MEDS: NITROGLYCERIN 10 MG (0.4 MG/HR) PATCH.TD24 TD SCH (09:21)
[2019-03-19] MEDS ORDERED: ASPIRIN 81 MG TABLET, ENT COATED PO SCH (10:00)
[2019-03-19] MEDS ORDERED: CLOPIDOGREL BISULFATE 75 MG TABLET PO SCH (10:00)
[2019-03-19 12:34] VITALS: BP 139/76
== END 2019-03-19 13:30 | disposition short-term general hospital (02) | DRG 282 ==
LOC: ER 23:53 → EH 03-18 03:59 → 3S 03-18 06:41
PROVIDERS: ADMIT Internal Medicine; ATTEND Internal Medicine
DX: I21.4 Non-ST elevation (NSTEMI) myocardial infarction (principal); I25.10 Atherosclerotic heart disease of native coronary artery without angina pectoris; I10 Essential (primary) hypertension; E11.9 Type 2 diabetes mellitus without complications; F17.210 Nicotine dependence, cigarettes, uncomplicated; J44.9 Chronic obstructive pulmonary disease, unspecified; E78.5 Hyperlipidemia, unspecified; R00.1 Bradycardia, unspecified; Z71.6 Tobacco abuse counseling; Z95.5 Presence of coronary angioplasty implant and graft; Z79.82 Long term (current) use of aspirin; Z79.899 Other long term (current) drug therapy
CPT/HCPCS: 36415; 71045; 80053; 82550; 82553; 83036; 84100; 84484; 85025; 85610; 85730; 93005; 93010; 99285; J1650; J3490

== ENCOUNTER → 2020-07-20 | Outpatient (CLI) | payer BC ==
--- NOTE | 2020-07-20 10:58 | RADIOLOGY REPORT (SQ) ---
EXAM DESCRIPTION: CT SOFT TISSUE NECK WITH IMAGES COMPLETED DATE/TIME: 07/20/2020 10:32 am REASON FOR STUDY: LOCALIZED SWELLING, MASS, AND LUMP, NECK R22.1 LOCALIZED SWELLING, MASS AND LUMP, NECK COMPARISON: None. TECHNIQUE: Post IV contrasted scanning from skull base through lung apices with review of bone, soft tissue and lung windows. Reconstructed coronal and sagittal MPR images reviewed. All images stored on PACS. All CT scanners at this facility use dose modulation, iterative reconstruction, and/or weight based d osing when appropriate to reduce radiation dose to as low as reasonably achievable (ALARA). [facility]: Dose Right [facility]: CareDose [facility]: Dose Right [facility]: Teradose 4D [facility]: MONOQI CONTRAST TYPE AND DOSE: contrast/concentration: Isovue 350.00 mmol/ml; Total Contrast Delivered: 75. 0 ml; Total Saline Delivered: 40.0 ml RENAL FUNCTION: GFR > 60. RADIATION DOSE: . LIMITATIONS: None. FINDINGS: SKULL BASE: Intact. MAJOR SALIVARY GLANDS: No solid or cystic masses. No inflammatory changes. LYMPHADENOPATHY: No adenopathy. MUCOSAL MASSES OR ASYMMETRY: No mucosal masses or asymmetry. LARYNX/CORDS: No abnormal findings. VASCULAR STRUCTURES: The major vessels are patent. LUNG APICES: Clear. BONES: Intact. THYROID: Normal size. No masses. PARANASAL SINUSES: Clear. OTHER: No other significant finding. IMPRESSION: NO SIGNIFICANT FINDING IN THE SOFT TISSUES OF THE NECK. TECHNICAL DOCUMENTATION: JOB ID: [id number] Quality ID # [id number]: Final reports with documentation of one or more dose reduction techniques (e.g., Au tomated exposure control, adjustment of the mA and/or kV according to patient size, use of iterative reconstruction technique) 2010 [employer]- All Rights Reserved Reading location - IP/workstation name: [email or web address]
== END ==
LOC: RAD 10:07
PROVIDERS: ATTEND Internal Medicine
DX: R22.1 Localized swelling, mass and lump, neck (principal)
CPT/HCPCS: 70491; 82565